=== PATIENT | female | born 1965 | race Caucasian/White ===

== ENCOUNTER 2017-10-04 23:17 | Emergency (ER) | payer SELFPAY ==
[~2017-10-04] VITALS: Ht 154.9 cm; Wt 100.0 kg
[~2017-10-04 23:17] MED LIST: ATIVAN0.5 MG OR; BACTRIM DS1 TAB PO; CIPRO500 MG OR; FLUOXETINE20 MG PO; IBUPROFEN OR; TYLENOL 325MG TAB
[2017-10-05 00:56] LABS: HEMATOCRIT 47.7 % (37.0-47.0); IMMATURE GRANULOCYTES 0.4 % (0.0-5.0); MEAN CELL VOLUME 90.9 fL CALC (80.0-100.0); MEAN CORPUSCULAR HGB 30.5 pG CALC (26.0-32.0); MEAN CORPUSCULAR HGB CONC 33.5 g/L CALC (32.0-36.0); NEUT# 5.1 thou/uL (2.00-7.15); RED BLOOD COUNT 5.25 mill/uL (4.20-5.60); RED CELL DISTRI WIDTH 13.7 % (11.5-15.5)
[2017-10-05 01:09] LABS: ALBUMIN 3.9 g/dL (3.2-5.0); ALKALINE PHOSPHATASE 85 u/l (38-126); ANION GAP 15 (6-22 (CALC)); BILIRUBIN, TOTAL 0.5 mg/dL (0.0-1.4); BUN 8 mg/dL (7-17); BUN/CREATININE RATIO 17 (12-20 (CALC)); CARBON DIOXIDE 26 mmol/l (22-30); CHLORIDE 100 mmol/l (95-108); CREATININE 0.5 mg/dL (0.5-1.0); GFR > 60 ML/MIN (>=60 (CALC)); GFR FOR AFR.AMER. > 60 ML/MIN (>=60 (CALC)); POTASSIUM 4.1 mmol/l (3.5-5.1); SGPT/ALT 31 u/l (9-52); SODIUM 137 mmol/l (137-146); TOTAL PROTEIN 7.1 g/dL (6.3-8.2)
[2017-10-05 01:13] LABS: SGOT/AST 35 u/l (14-36)
[2017-10-05 01:20] LABS: MYOGLOBIN 73 ng/mL (0 - 62)
[2017-10-05 02:42] VITALS: BP 123/59
== END 2017-10-05 02:42 | disposition short-term general hospital (02) | DRG 313 ==
LOC: ED 23:17
PROVIDERS: Emergency Medicine
DX: R07.9 Chest pain, unspecified (principal); R74.8 Abnormal levels of other serum enzymes; F17.210 Nicotine dependence, cigarettes, uncomplicated